=== PATIENT | male | born 1970 | race Caucasian/White ===

== ENCOUNTER 2022-09-02 21:20 | Emergency (ER) | payer SELFPAY ==
[~2022-09-02] VITALS: Ht 170.2 cm; Wt 90.7 kg
--- NOTE | 2022-09-02 21:26 | NUR ---
BIBA TO BED #3
[2022-09-02 21:30] VITALS: BP 154/70
[2022-09-02] MEDS ORDERED: NACL 0.9% 1,000 ML IV ONE (21:50)
--- NOTE | 2022-09-02 22:00 | NUR ---
Wilfred pike in EDM - 09/03/22 at 0313 by JORGE Patient discharged with v/s stable. Written and verbal after care instructions given and explained. Patient verbalized understanding. Ambulatory with steady gait. All questions addressed prior to discharge. Advised to follow up with PMD.
[2022-09-02 22:08] LABS: BASOPHILS # (AUTO) 0.1 K/uL (0.00-0.22); EOSINOPHILS # (AUTO) 0.2 K/uL (0-0.4); EOSINOPHILS % (AUTO) 3.3 % (0.0-4.0); HEMATOCRIT 37.7 % (36-52); HEMOGLOBIN 12.4 g/dL (12.0-18.0); LYMPHOCYTES # (AUTO) 2.2 K/uL (2.0-11.5); LYMPHOCYTES % (AUTO) 32.5 % (20.5-51.1); MEAN CORPUSCULAR HEMOGLOBIN 28 pg (27-31); MEAN CORPUSCULAR HGB CONC 33 g/dL (33-37); MEAN CORPUSCULAR VOLUME 84.1 fL (80-94); MONOCYTES # (AUTO) 0.7 K/uL (0.8-1.0); NEUTROPHILS # (AUTO) 3.7 K/uL (1.8-7.7); NEUTROPHILS % (AUTO) 53.2 % (42.2-75.2); PLATELET COUNT (AUTO) 345 K/uL (140-450); RED BLOOD CELL COUNT(AUTO) 4.48 MIL/uL (4.20-6.10); RED CELL DISTRIBUTION WIDTH 15.1 % (11.6-13.7); WHITE BLOOD COUNT (AUTO) 6.9 K/uL (4.8-10.8)
--- NOTE | 2022-09-02 22:10 | NUR ---
PT TO CT
[2022-09-02] MEDS ORDERED: ACETAMINOPHEN 325 MG TAB PO ONE (23:30)
[2022-09-03] LABS: ALBUMIN 3.3 g/dL (3.4-5.0); ANION GAP 10.8 (8-16); ASPARTATE AMINOTRANSFERASE 31 U/L (15-37); CARBON DIOXIDE 28.4 mmol/L (21-32); CHLORIDE 104 mmol/L (98-107); CREATININE 1.1 mg/dL (0.6-1.3); GFR ARICAN-AMERICAN 91 mL/min (>90); GLUCOSE 111 mg/dL (74-106); POTASSIUM 4.2 mmol/L (3.5-5.1); TOTAL BILIRUBIN 0.2 mg/dL (0.0-1.0); UREA NITROGEN, BLOOD 18 mg/dL (7-18)
[2022-09-03 00:05] LABS: SODIUM SERUM 139 mmol/L (136-145)
--- NOTE | 2022-09-03 00:35 | NUR ---
Patient discharged with v/s stable. Written and verbal after care instructions given and explained. Patient verbalized understanding. Ambulatory with steady gait. All questions addressed prior to discharge. Advised to follow up with PMD.
== END 2022-09-03 00:35 | disposition home or self-care (01) ==
LOC: MED 21:20
DX: R55 Syncope and collapse (principal); R51.9 Headache, unspecified; R20.2 Paresthesia of skin; I10 Essential (primary) hypertension; E78.5 Hyperlipidemia, unspecified; F17.200 Nicotine dependence, unspecified, uncomplicated; F12.90 Cannabis use, unspecified, uncomplicated
CPT/HCPCS: 36415; 70450; 71045; 80053; 84484; 85025; 93005; 96360; 99285; J7030; Q0092